=== PATIENT | female | born 1950 | race Caucasian/White ===

== ENCOUNTER → 2017-02-03 | Outpatient (CLI) | payer BC, MEDICARE ==
[~2017-02-03] MED LIST: AMITRIPTYLINE50 MG PO; CALCIUM 500+D1 EACH PO; CALCIUM500 MG PO; CHOLESTEROL MA600 MG PO; FLAXSEED OIL1 CAP PO; HYDROCODONE BIT1 T11 PO; INDOMETHACIN25 MG PO; MULTIVITAMIN1 CTB PO; NAPROSYN500 MG PO; NATURE'S BLE1000 MCG PO; NITROSTAT0.4 MG SL; Synthroid,Lev100 MCG PO; Synthroid,Levo50 MCG PO; VITAMIN C1000 M2 PO; [UNRECOGNIZED DRUG - OTHER]
[2017-02-03 11:18] LABS: BASO % 0.7 % (0.0-1.0); EOS # 0.1 10*3/uL (0.0-0.4); HEMATOCRIT 41.1 % (37.0-47.0); HEMOGLOBIN 13.5 g/dl (12.0-16.0); LYMPH # 1.9 10*3/uL (1.3-4.4); LYMPH % 42.3 % (27.0-41.0); MEAN CELL VOLUME 86.7 fl (81.0-99.0); MEAN CORPUSCULAR HGB 28.5 pg (27.0-31.0); MEAN CORPUSCULAR HGB CONC 32.8 g/dl (33.0-37.0); MONO # 0.4 10*3/uL (0.1-1.0); MONO % 8.5 % (3.0-9.0); NEUT # 2.1 10*3/uL (2.3-7.9); NEUT % 46.3 % (47.0-73.0); PLATELET COUNT AUTOMATED 168 10*3/uL (130-400); RED BLOOD COUNT 4.74 10*6/uL (4.10-5.10); RED CELL DISTRI WIDTH 12.4 % (0-14.5); WHITE BLOOD COUNT 4.5 10*3/uL (4.8-10.8)
[2017-02-03 11:33] LABS: ALBUMIN 3.8 gm/dl (3.1-4.5); BUN 13 mg/dl (7-24); CARBON DIOXIDE 28 mmol/L (21-32); CHLORIDE 107 mmol/L (98-107); CHOLESTEROL 253 mg/dL (<200); EST GLOM FILT AFRICAN AMERICAN > 60 ml/min; GLUCOSE 84 mg/dL (65-99); SGOT/AST 24 IU/L (3-35); SGPT/ALT 20 U/L (12-78); SODIUM 140 mmol/L (136-145); TRIGLYCERIDES 191 mg/dl (<150); VLDL CHOLESTEROL 38 mg/dL (6-40)
[2017-02-03 11:40] LABS: ALKALINE PHOSPHATASE 102 U/L (45-117); BILIRUBIN, TOTAL 0.5 mg/dl (0.2-1.0); FREE T4 1.09 ng/dl (0.76-1.46); HDL CHOLESTEROL 54 mg/dl (40-60); LDL CHOLESTEROL 161 mg/dL (9-159); THYROID STIM HORMONE (HS) 0.842 uIU/ml (0.358-4.75); TOTAL PROTEIN 7.5 gm/dL (6.4-8.2)
== END | disposition home or self-care (01) ==
LOC: LAB 10:36
PROVIDERS: Internal Medicine
DX: E03.9 Hypothyroidism, unspecified (principal); E55.9 Vitamin D deficiency, unspecified; E66.3 Overweight

== ENCOUNTER → 2017-04-30 | Outpatient (CLI) | payer BC, MEDICARE | END | disposition home or self-care (01) | LOC: ORTHO 04:00 | DX: M19.031 Primary osteoarthritis, right wrist (principal) ==

== ENCOUNTER → 2017-12-18 | Outpatient (CLI) | payer BC, MEDICARE | END | disposition home or self-care (01) | LOC: MAMMO 12-16 15:40 | DX: Z12.31 Encounter for screening mammogram for malignant neoplasm of breast (principal) ==

== ENCOUNTER → 2018-06-05 | Day surgery (SDC) | payer BC, MEDICARE ==
[~2018-06-05] VITALS: Ht 170.1 cm; Wt 71.2 kg
[~2018-06-05] MED LIST changes: +MULTIVITAMINS1 EAC5 PO; +VITAMIN D31000 UNIT PO
--- NOTE | ~2018-06-05 | PROC NOTE ---
[place], [place] PROCEDURE NOTE NAME: JIM STEVENSON [facility] #: [id number] UNIT #: [id number] ROOM: DOCTOR: JAKE RAE,ELIDIA BIRTHDATE: [birth year] DOS: PROCEDURE: Colonoscopy and polypectomy. INDICATION: History of colon polyps. An informed consent was obtained from the patient after indication of procedure, the alternatives and potential complications were explained to her. PROCEDURE MEDICATION: Sedation was administered by Anesthesiology Department. Scope used was Olympus pediatric colonoscope variable stiffness GIF-180, depth of insertion was to the cecum, which was identified by the usual landmarks of appendiceal orifice, ileocecal valve and triangular fold, in addition to transillumination in the right lower quadrant. FINDINGS: After adequate sedation, the patient was placed in left lateral decubitus position. Rectal examination showed a normal sphincter tone and no external hemorrhoids. The scope was introduced into the rectum, then advanced to the cecum with slight difficulty due to looping in the left colon. The prep was good. Two polyps were identified in the rectum, 5 and 7 mm in diameter. Both polyps were removed with a cold snare and recovered. The remaining colon mucosa appeared otherwise normal with no evidence of diverticula, ulcerations or obstructing lesions. Retroflexed views in the rectum showed grade 1 internal hemorrhoids and a small skin tag. The scope was then withdrawn after the rectum was decompressed. The patient tolerated the procedure well. IMPRESSION: 1. Rectal polyps x 2. 2. Internal hemorrhoids. PLAN: We will review the histopathology reports and treat the patient accordingly. The patient was advised to avoid aspirin and NSAIDs for the next 10 days. Office followup will be scheduled in 2-3 weeks. ELIDIA JOSEPH MD CM:PROCNOTE:PROCEDURE NOTE [id number] ELIDIA JOSEPH MD
[2018-06-05 07:10] VITALS: BP 119/63
[2018-06-05 08:42] VITALS: BP 97/51
[2018-06-05 08:57] VITALS: BP 109/58
[2018-06-05 09:12] VITALS: BP 109/64
== END ==
LOC: SDC 06-01 08:00
DX: Z12.11 Encounter for screening for malignant neoplasm of colon (principal); D12.8 Benign neoplasm of rectum; Z86.010 Personal history of colon polyps; K64.8 Other hemorrhoids; K64.4 Residual hemorrhoidal skin tags; G43.909 Migraine, unspecified, not intractable, without status migrainosus; Z87.442 Personal history of urinary calculi; E03.9 Hypothyroidism, unspecified; Z79.899 Other long term (current) drug therapy

== ENCOUNTER → 2019-08-23 | Outpatient (CLI) | payer BC, MEDICARE | END | disposition home or self-care (01) | LOC: MAMMO 13:29 | DX: Z12.31 Encounter for screening mammogram for malignant neoplasm of breast (principal) ==

== ENCOUNTER → 2020-04-14 | Outpatient (CLI) | payer BC, MEDICARE | END | disposition home or self-care (01) | LOC: RAD 15:32 | PROVIDERS: ATTEND Physician Assistant | DX: S52.571D Other intraarticular fracture of lower end of right radius, subsequent encounter for closed fracture with routine healing (principal); X58.XXXD Exposure to other specified factors, subsequent encounter ==

== ENCOUNTER → 2020-04-26 | Outpatient (CLI) | payer BC, MEDICARE | END | disposition home or self-care (01) | LOC: RAD 13:30 | PROVIDERS: ATTEND Physician Assistant | DX: M81.0 Age-related osteoporosis without current pathological fracture (principal); S52.571D Other intraarticular fracture of lower end of right radius, subsequent encounter for closed fracture with routine healing; Z78.0 Asymptomatic menopausal state; X58.XXXD Exposure to other specified factors, subsequent encounter ==

== ENCOUNTER → 2020-05-16 | Outpatient (CLI) | payer BC, MEDICARE | END | disposition home or self-care (01) | LOC: COVID19 08:09 | PROVIDERS: ATTEND Physician Assistant | DX: R69 Illness, unspecified (principal) ==

== ENCOUNTER → 2021-05-10 | Outpatient (CLI) | payer BC, MEDICARE | END | disposition home or self-care (01) | LOC: MAMMO 10:11 | PROVIDERS: ATTEND Physician Assistant | DX: Z12.31 Encounter for screening mammogram for malignant neoplasm of breast (principal) ==

== ENCOUNTER → 2022-05-15 | Outpatient (CLI) | payer BC, MEDICARE | END | disposition home or self-care (01) | LOC: MAMMO 13:16 | PROVIDERS: ATTEND Physician Assistant | DX: Z12.31 Encounter for screening mammogram for malignant neoplasm of breast (principal) ==

== ENCOUNTER → 2023-06-02 | Outpatient (CLI) | payer BC, MEDICARE | LOC: MAMMO 01:20 | PROVIDERS: ATTEND Physician Assistant | DX: Z12.31 Encounter for screening mammogram for malignant neoplasm of breast (principal); M81.0 Age-related osteoporosis without current pathological fracture; N64.89 Other specified disorders of breast; E78.00 Pure hypercholesterolemia, unspecified; E03.9 Hypothyroidism, unspecified ==

== ENCOUNTER → 2024-07-01 | Outpatient (CLI) | payer OTHER, MEDICARE | END | disposition home or self-care (01) | LOC: MAMMO 01:31 | PROVIDERS: ATTEND Physician Assistant | DX: Z12.31 Encounter for screening mammogram for malignant neoplasm of breast (principal) ==

== ENCOUNTER → 2024-12-23 | Outpatient (CLI) | payer OTHER, MEDICARE ==
[~2024-12-23] MED LIST changes: +IOHEXOL 300 MG/ML 100 ML VIAL IV ONE; +IOHEXOL 300 MG/ML 100 ML VIAL ONE
== END | disposition home or self-care (01) ==
LOC: CT 02:25
PROVIDERS: ATTEND Physician Assistant
DX: N28.1 Cyst of kidney, acquired (principal); R10.12 Left upper quadrant pain; R10.9 Unspecified abdominal pain; M41.86 Other forms of scoliosis, lumbar region